=== PATIENT | female | born 1970 | race Caucasian/White ===

== ENCOUNTER 2017-06-07 16:45 | Emergency (ER) | payer BC | END 2017-06-07 18:40 | disposition left against medical advice (07) | LOC: JP.ED 16:45 | DX: Z53.21 Procedure and treatment not carried out due to patient leaving prior to being seen by health care provider (principal) ==

== ENCOUNTER 2017-06-08 08:58 | Emergency (ER) | payer BC ==
--- NOTE | 2017-06-08 09:50 | EDM.PDOC ---
[id number]: ABDOMINAL PAIN Time Seen by Provider: 06/08/17 09:30 Source of Information: Reports: Patient, Family History Limitations: Reports: No Limitations - History of Present Illness INITIAL COMMENTS - FREE TEXT/NARRATIVE: 39-year-old female with lower abdominal pain for the past 2 days. He is worsening, she said chills and low-grade fevers. She feels she needs to have a bowel movement and her abdomen is "bloated". She is typically healthy. She had a was her only abdominal surgery, she's had no colonoscopy. Her mother just of ovarian cancer which is a very significant concern of hers. She has never been screened. Onset: Gradual (Over the past 2 days, woke up with symptoms on Tuesday morning today being Tuesday) Left Abdomen Pain Score (Numeric/FACES): 4 - Related Data Allergies Allergy/AdvReac Type Severity Reaction Status Date / Time albuterol Allergy Other Verified 06/08/17 09:13 Home Meds: Home Meds Diclofenac Sodium [Diclofenac Sodium] 1 tab PO BID 06/08/17 [History] Past Medical History [facility] History: Reports: Musculoskeletal History: Reports: Other (See Below) Other Musculoskeletal History: frozen shoulder r side Psychiatric History: Reports: Depression Oncologic (Cancer) History: Reports: Other (See Below) Other Oncologic History: skin Dermatologic History: Reports: Other (See Below) Other Dermatologic History: melanoma of skin - Infectious Disease History Infectious Disease History: Reports: Chicken Pox - Past Surgical History Female Surgical History: Reports: Section, Other (See Below) Other Female Surgeries/Procedures: Abnormal pap procedure done 10 years ago. Dermatological Surgical History: Reports: Skin Biopsy Social & Family History - Tobacco Use Smoking Status *Q: Never Smoker Second Hand Smoke Exposure: No - Caffeine Use Caffeine Use: Reports: None - Recreational Drug Use Recreational Drug Use: No ED ROS GENERAL - Review of Systems Review Of Systems: See Below Constitutional: Reports: Fever, Chills (Yesterday), Malaise, Decreased Appetite HEENT: Reports: No Symptoms Respiratory: Denies: Shortness of Breath Cardiovascular: Denies: Chest Pain Endocrine: Reports: Fatigue GI/Abdominal: Reports: Abdominal Pain, Decreased Appetite. Denies: Constipation , Nausea, Vomiting : Reports: No Symptoms. Denies: Dysuria Musculoskeletal: Reports: No Symptoms Skin: Reports: No Symptoms Neurological: Reports: Headache (She had a headache last night) Psychiatric: Reports: No Symptoms ED EXAM, GI/ABD - Physical Exam Exam: See Below Exam Limited By: No Limitations General Appearance: Alert, No Apparent Distress (Patient looks uncomfortable but is not distressed) Eyes: Right: Normal Appearance (No jaundice) Respiratory/Chest: No Respiratory Distress Cardiovascular: Regular Rate, Rhythm GI/Abdominal Exam: Soft, Tender (Patient is significantly tender across the lower and left abdomen with guarding and rebound tenderness) Extremities: No: Pedal Edema Neurological: Alert, Oriented Psychiatric: Normal Affect, Normal Mood Skin Exam: Warm, Dry Course - Vital Signs Last Recorded V/S: Last Vital Signs Temp 97.3 F 06/08/17 11:00 Pulse 62 06/08/17 11:00 Resp 16 06/08/17 11:00 BP 107/70 06/08/17 11:00 Pulse Ox 98 06/08/17 11:00 - Orders/Labs/Meds Orders: Active Orders 24 hr Category Date Time Status Saline Lock Insert [OM.PC] Routine Oth 06/08/17 09:43 Ordered Labs: Laboratory Tests 06/08/17 06/08/17 06/08/17 Range/Units 09:50 09:50 09:50 WBC 5.6 (4.5-11.0) K/uL RBC 4.54 (3.30-5.50) M/uL Hgb 13.5 (12.0-15.0) g/dL Hct 41.0 (36.0-48.0) % MCV 90 (80-98) fL MCH 30 (27-31) pg MCHC 33 (32-36) % Plt Count 264 (150-400) K/uL Neut % (Auto) 68 H (36-66) % Lymph % (Auto) 19 L (24-44) % [place] % (Auto) 11 H (2-6) % Eos % (Auto) 1 L (2-4) % Baso % (Auto) 2 H (0-1) % Sodium 138 L (140-148) mmol/L Potassium 4.3 (3.6-5.2) mmol/L Chloride 105 (100-108) mmol/L Carbon Dioxide 29 (21-32) mmol/L Anion Gap 8.3 (5.0-14.0) mmol/L BUN 10 (7-18) mg/dL Creatinine 0.6 (0.6-1.0) mg/dL Est Cr Clr Drug Dosing 111.51 mL/min Estimated GFR (MDRD) > 60 (>60) Glucose 89 (74-106) mg/dL Calcium 8.8 (8.5-10.1) mg/dL Total Bilirubin 0.8 (0.2-1.0) mg/dL AST 61 H (15-37) U/L ALT 152 H (12-78) U/L Alkaline Phosphatase 73 (46-116) U/L Total Protein 7.2 (6.4-8.2) g/dL Albumin 3.3 L (3.4-5.0) g/dL Globulin 3.9 H (2.3-3.5) g/dL Albumin/Globulin Ratio 0.9 L (1.2-2.2) Amylase 44 (25-115) U/L Lipase 136 (73-393) U/L Meds: Medications Discontinued Medications Generic Name Dose Route Start Last Admin Trade Name Freq PRN Reason Stop Dose Admin Sodium Chloride 75 mls @ 3 mls/sec 06/08/17 10:30 06/08/17 10:41 Normal Saline IV 3 mls/sec ASDIRECTED GAMA Administration Iopamidol 100 ml 06/08/17 10:28 06/08/17 10:41 Isovue-300 (61%) IV 06/09/17 10:29 100 ml . DIRECTED PRN Administration RADIOLOGY EXAM Sodium Chloride 10 ml 06/08/17 09:43 06/08/17 10:42 Saline Flush FLUSH 10 ml ASDIRECTED PRN Administration Keep Vein Open - Re-Assessments/Exams Free Text/Narrative Re-Assessment/Exam: 06/08/17 09:53 A saline lock was inserted, CBC was rechecked along with a CMP, amylase and lipase. Intent is to get the CT scan of her abdomen with IV contrast. 06/08/17 11:02 White count is normal today. CT scan revealed moderate diverticulitis of the descending and sigmoid colon. Patient will be placed on Bactrim DS twice a day and metronidazole 500 mg 3 times a day for 7 days. Encouraged her to drink a lot of water, stool softeners may help and return if worsening despite treatment. Departure - Departure Time of Disposition: 11:23 Disposition: Home, Self-Care 01 Condition: Good Clinical Impression: Diverticulitis Qualifiers: Diverticulitis site: large intestine Diverticulitis bleeding: without bleeding Diverticulitis complication: without perforation or abscess Qualified Code(s): K57.32 - Diverticulitis of large intestine without perforation or abscess without bleeding - Discharge Information Instructions: Diverticulitis, [id number] Referrals: Darrick Odom MD [Primary Care Provider] - Forms: ED Department Discharge Care Plan Goals: Drink lots of water, take antibiotic for a full 7 days as prescribed. Return at any time if you feel you are worsening despite treatment. - My Orders Last 24 Hours: My Active Orders 06/08/17 09:43 Saline Lock Insert [OM.PC] Routine - Assessment/Plan Last 24 Hours: My Active Orders 06/08/17 09:43 Saline Lock Insert [OM.PC] Routine
[2017-06-08] MEDS ORDERED: Iopamidol 612 MG/ML 100 ML Bottle IV PRN (10:28)
[2017-06-08] MEDS ORDERED: Sodium Chloride 0.9% 75 ML IV SCH (10:30)
[2017-06-08] MEDS: Sodium Chloride 0.9% 10 ML Syringe FLUSH PRN ×2 (10:32→10:42)
--- NOTE | 2017-06-08 10:55 | CT ---
Abdomen Pelvis w Cont Total DLP 523 mGycm. INDICATION: lower abdominal pain COMPARISON: None. FINDINGS: Small esophageal hiatal hernia. Liver, gallbladder, spleen, adrenal glands, and pancreas a re negative. Tiny presumed right renal cyst. Left peripelvic cysts. Wall thickening and inflammatory change of the distal descending colon with adjacent diverticula. Findings consistent with acute div erticulitis. No abscess. Normal appendix. Exam otherwise negative. IMPRESSION: Acute distal descending colon diverticulitis. No abscess.
[2017-06-08 11:23] VITALS: BP 107/70
== END 2017-06-08 11:23 | disposition home or self-care (01) ==
LOC: JP.ED 08:58
DX: K57.32 Diverticulitis of large intestine without perforation or abscess without bleeding (principal); F32.9 Major depressive disorder, single episode, unspecified; Z88.8 Allergy status to other drugs, medicaments and biological substances; Z98.890 Other specified postprocedural states; Z85.820 Personal history of malignant melanoma of skin
CPT/HCPCS: 36415; 74177; 80053; 82150; 83690; 85025; 99284; J7030; J7050; Q9967

== ENCOUNTER 2019-06-01 06:57 | Day surgery (SDC) | payer OTHER, BC ==
[2019-06-01] MEDS ORDERED: Propofol 200 MG/20 ML SDV ONE ×2 (07:22→08:30)
[2019-06-01] MEDS ORDERED: fentaNYL 100 MCG/2 ML SDV ONE (07:23)
[2019-06-01] MEDS ORDERED: Midazolam 1 MG/ML 2 ML SDV ONE (07:23)
[2019-06-01] MEDS ORDERED: Lactated Ringers 1,000 ML IV SCH (07:30)
[2019-06-01 11:46] VITALS: BP 112/71; PULSE 55
--- NOTE | 2019-06-01 12:47 | OR ---
DATE OF PROCEDURE: 06/01/2019 PREOPERATIVE DIAGNOSIS: Colon cancer screening. POSTOPERATIVE DIAGNOSIS: Diverticulosis. PROCEDURE: Colonoscopy to the cecum. SURGEON: Jose Varghese MD ANESTHESIA: IV anesthesia with monitored anesthesia care. INDICATION: This 49-year-old white female is referred for a colonoscopy for colon cancer screening. She has never had a colonoscopic exam. I counseled her for the procedure, including risks and alternatives, and she gave her informed consent to proceed. DESCRIPTION OF PROCEDURE: The patient was placed in the left lateral decubitus position. IV anesthesia was administered by the Anesthesia Service. Time-out was held. A rectal exam was performed, which was unremarkable. The flexible video Olympus colonoscope was introduced through her anus, up her rectum, and out her colon all the way to the cecum. Once the cecum was reached, the scope was slowly withdrawn, examining the mucosa throughout. No mucosal abnormalities were noted until we reached the left colon. Here, and in the sigmoid colon, we saw a few scattered diverticula. There was no bleeding or inflammation associated with them. Once the rectum was reached, the scope was retroflexed with the distal rectum appearing unremarkable. The scope was straightened and removed. She tolerated the procedure well. Jose Varghese MD /[id number]
== END 2019-06-01 11:40 | disposition home or self-care (01) ==
LOC: JP.SDS 06:57
PROVIDERS: ATTEND Surgery
DX: Z12.11 Encounter for screening for malignant neoplasm of colon (principal); K57.30 Diverticulosis of large intestine without perforation or abscess without bleeding; J45.909 Unspecified asthma, uncomplicated; Z88.8 Allergy status to other drugs, medicaments and biological substances
CPT/HCPCS: 45378; J2250; J2704; J3010; J7120